=== PATIENT | female | born 1990 | race Caucasian/White ===

== ENCOUNTER 2022-01-22 12:16 | Emergency (ER) | payer OTHER, SELFPAY ==
[2022-01-22 14:02] VITALS: BP 149/74; PULSE 53; RESP 16; TEMP 36.6; O2SAT 100; BMI 61.2
[2022-01-22 15:10] LABS: IDNOW Serial# 08D9AD1C; Strep A Nucleic Acid Negative (Negative)
[2022-01-22 15:15] LABS: COVID-19 Test Negative (Negative)
[2022-01-22 15:16] LABS: Influenza A Negative (Negative); Influenza B2 Negative (Negative)
--- NOTE | 2022-01-22 15:16 | ED_ITS ---
HPI - General Adult General Chief complaint: General Medical Stated complaint: throat pain/tooth infection Time Seen by Provider: 01/22/22 14:57 Source: patient Mode of arrival: ambulatory Limitations: no limitations History of Present Illness HPI narrative: Patient is a 31-year-old female with a past medical history of hypertension, glaucoma, depression. She presents emergency department today for evaluation of a sore throat. She states that she has been having a right upper dental pain for a few weeks, but due to her depression did not have this evaluated. She presented to her dental abscess today had x-rays obtained and was given a new prescription for antibiotic, though she has not yet picked up the medication does not recall the name. She has this scheduled appointment next month for removal of the right upper is doing tooth. Since last night she has been having a sore throat, and reports that her throat feels ?swollen?. Denies fevers, chills, ear pain, difficulty swallowing, difficulty with speech, heartburn, nausea, vomiting, abdominal pain, chest pain, palpitations, shortness of breath, difficulty breathing. She does report a history of allergic rhinitis, has taken Flonase in the past, took an oral allergy pill today but did not notice any improvement. Review of Systems Review of Systems: Constitutional : No Fever, No Chills, No changes in PO intake, No difficulty speaking,? no recent dental procedure, no heat or cold intolerance while eating, no recent face trauma, ENT/Mouth : No swallowing difficulty, no change in voice, No jaw pain, No facial swelling, no drooling, no trismus, no bleeding, no lacerations, no tongue swelling, no gum swelling, Eyes: No Eye Pain, No periorbital Swelling Cardiovascular : No Chest Pain, No SOB Respiratory : No Cough, No Sputum, No Wheezing, No Smoke Exposure, No Dyspnea Gastrointestinal : No Nausea, No Vomiting, No Diarrhea Genitourinary : No Dysuria Musculoskeletal : No Myalgias Skin : No rash, no facial swelling or redness, Neuro : No Weakness, No Numbness, No Headache Yes all other systems are reviewed and are negative [facility] Past Medical History Attestation statement: The following information was validated with the patient. Source: old records reviewed Medical History Glaucoma HTN (hypertension) PTSD (post-traumatic stress disorder) Social History Social History Advance Directives: No Advance Directives Information Provided: No Patient : No Physical Exam ED Vital Signs: Vital Signs - 24 hr 01/22/22 14:02 Temperature 97.8 F Pulse Rate 53 Respiratory Rate 16 Blood Pressure 149/74 H Pulse Oximetry 100 BMI result Body Mass Index 61.2 Vital signs have been reviewed and appeared to be correct. Blood pressure mildly elevated at 149/74 Heart rate normal.? Respiration rate normal. Temperature normal.? Oxygen saturation normal. Appearance: Alert. Oriented X3. No acute distress. Head: Normal external exam. Normocephalic. Atraumatic. Eyes: PERRL. EOMI. Conjunctiva and sclera normal. Eyelids normal. ENT: EAC normal. TM's Normal. Pharynx normal. Uvula midline. Moist mucous membranes. Floor of mouth soft. No trismus noted.? No drooling noted.? No muffled voice noted. Dentition:? Patient with good dentition throughout.? Gingival within normal limits.? No fluctuance.? Not consistent with peritonsillar abscess. Not consistent with dental abscess.? No salivary duct obstruction noted. Neck: Normal inspection. Neck supple. FROM. No adenopathy. Thyroid Normal. No meningeal signs. No neck mass noted.? Trachea midline. CVS: Normal heart rate and rhythm. Heart sound normal. No murmurs noted. Pulses normal throughout. Respiratory: No respiratory distress. Painless inspiration. Breath sounds normal. No wheezes/rales/rhonchi noted. Chest nontender. ?No accessory muscle usage noted or decreased air movement noted. Back:? Full range of motion noted. Skin: Skin warm and dry.? Normal skin color.? Normal skin turgor. No rashes/lesions/lacerations noted. Extremities: Extremities exhibit normal range of motion.? Extremities nontender. Neuro: Oriented X 3.? No motor deficit.? No sensory deficit.? Reflexes normal. Course Course Course Narrative: Patient is a 31-year-old female being evaluated for sore throat. She is well appearing, nontoxic, afebrile, no tachycardia. Managing secretions appropirately. Had COVID-19 influenza and strep grp A testing in triage which were negative. On exam she has mild pharyngeal erythema, suspect that this may be viral or secondary to allergic rhinitis. Not consistent with peritonsillar abscess, dental abscess, Td's angina. She has already been prescribed course of antibiotics by her dental provider. Advised that she may trial [id number] Chloraseptic throat spray in addition to Flonase given her history of rhinitis. Discussed plan of care for discharge home, discussed reasons to return back to emergency department, patient is agreeable to plan of care. Medical Decision Making Lab Data Labs: Lab Results 01/22/22 01/22/22 Range/Units 14:51 14:51 COVID-19 ([facility]) Negative (Negative) COVID-19 Clin Com See Note S. pyogenes GrpA MARCELA Negative (Negative) Discharge Plan Discharge Clinical Impression: Pharyngitis Patient Disposition: Home, Self-Care Instructions: Pharyngitis (ED) Additional Instructions: COVID-19, influenza, strep throat testing were all negative. Please complete the course of antibiotics as prescribed by your dental provider, and follow-up as scheduled for extraction of your 2. Your sore throat is likely due to viral infection or possibly due to postnasal drip from allergies. He can purchase [id number] Chloraseptic throat spray for your discomfort and may want to trial Flonase. You can take ibuprofen 200 mg, 3 tablets (600mg) every 6-8 hours as needed for pain, in addition to Tylenol 500 mg, 2 tablets (1,000mg) every 4-6 hours as needed for pain, but not to exceed 3 doses daily (3,000mg).? Please return to emergency department with any new or worsening symptoms or concerns.
== END 2022-01-22 15:40 | disposition home or self-care (01) ==
PROVIDERS: Emergency Provider Emergency Medicine
DX: J02.9 Acute pharyngitis, unspecified (principal); I10 Essential (primary) hypertension; Z20.822 Contact with and (suspected) exposure to COVID-19; Z79.899 Other long term (current) drug therapy
CPT/HCPCS: 87502; 87635; 87651; 99283

== ENCOUNTER 2023-01-06 10:01 | Emergency (ER) | payer OTHER, SELFPAY ==
[2023-01-06 10:04] VITALS: BP 143/74; PULSE 77; RESP 18; TEMP 36.6; O2SAT 100; BMI 55.0
--- NOTE | 2023-01-06 10:27 | ED.GENADULT ---
HPI - General Adult General Chief complaint: Psychiatric Symptoms Stated complaint: crisis Time Seen by Provider: 01/06/23 10:27 Source: patient Mode of arrival: ambulatory Limitations: no limitations History of Present Illness HPI narrative: Patient is a 32 year old assigned female at with a history of glaucoma, depression, and insomnia associated with depression, presenting to the emergency department today with increased depression. Patient states that she used to be on Trazadone and Lexapro but because of the side effects and concerns around her glaucoma, she stopped them. Patient states that she has not been able to see a psychiatrist for at least 6 months. Patient states that she does not have any thoughts of harming herself or others. Patient denies any dizziness, lightheadedness, abdominal pain, nausea, vomiting, fever, chills, blurry vision, double vision, loss of vision, chest pain, difficulty breathing, shortness of breath, back pain, night sweats, pain with urination, increased urinary frequency, increased urinary urgency, blood in her urine or stool, syncope or a near syncopal episode, recent trauma or falls, bowel incontinence, bladder incontinence, bowel retention, bladder retention, or any other complaints at this time. Relieving factors: none Exacerbating factors: none Associated symptoms: denies other symptoms Treatments prior to arrival: none Related Data Allergies Allergy/AdvReac Type Severity Reaction Status Date / Time Unable to Assess Allergy Unverified 01/06/23 10:27 Review of Systems Constitutional: Constitutional: Reports no additional constitutional complaints, Denies chills, Denies fever(s) and Denies night sweats Eyes: Eyes: Reports no additional eye complaints, Denies blurry vision, Denies change in vision, Denies diplopia, Denies eye discharge, Denies loss of vision and Denies eye pain ENT: Denies dizziness Cardiovascular: Cardiovascular: Reports no additional cardiovascular complaints, Denies chest pain, Denies lightheadedness, Denies Loss of Consciousness and Denies dyspnea Respiratory: Respiratory: Reports no additional respiratory complaints and Denies dyspnea Gastrointestinal: Gastrointestinal: Reports no additional gastrointestinal complaints, Denies abdominal pain, Denies melena, Denies hematochezia, Denies change in bowel habits and Denies change in stool character Genitourinary: Genitourinary: Denies hematuria, Denies urinary frequency, Denies dysuria, Denies urinary incontinence, Denies urinary hesitancy and Denies urinary urgency Musculoskeletal: Musculoskeletal: Reports no additional musculoskeletal complaints, Denies numbness and Denies tingling Neurologic: Denies dizziness, Denies loss of vision, Denies numbness and Denies tingling Psychiatric: Psychiatric: Reports depression, Denies homicidal ideation and Denies suicidal ideation Endocrine: Endocrine: Reports no additional endocrine complaints Hematologic/Lymphatic: Hematologic/Lymphatic: Reports no additional hematologic/lymphatic complaints Allergic/Immunologic: Allergic/Immunologic: Reports no additional allergic/immunologic complaints [facility] Past Medical History Attestation statement: The following information was validated with the patient. Source: old records reviewed and nursing notes reviewed Medical History Glaucoma HTN (hypertension) PTSD (post-traumatic stress disorder) Social History Social History Alcohol intake: never Smoked in Last 30 Days: Yes Use of substances other than those prescribed or required for medical reasons: No Advance Directives: No Advance Directives Information Provided: No Patient : No Physical Exam ED Vital Signs: Vital Signs - 24 hr 01/06/23 10:04 01/06/23 11:10 Temperature 98 F 98.1 F Pulse Rate 77 58 Respiratory Rate 18 15 Blood Pressure 143/74 H 122/58 L Pulse Oximetry 100 100 Oxygen Delivery Method Room Air Room Air BMI result Body Mass Index 55.0 Const General: cooperative, no acute distress, alert and awake Nutritional Appearance: well nourished Orientation/consciousness: patient oriented x3 Limitations: no limitations [facility] Head: Yes normal to inspection and Yes atraumatic Ears: hearing grossly normal bilaterally and external ears normal General nose exam: Normal external nose present, no nasal discharge noted and no epistaxis Face and sinus: Yes normal facial exam, No abrasion and No laceration Mouth: Normal oral and palatal mucosa present, no drooling and no muffled voice Eyes General: appearance normal, both eyes and all related structures Periorbital: periorbital findings normal Eyelids: Yes eyelids normal Conjunctivae: conjunctivae normal Pupils: Equal, round and reactive pupils present EOM: EOMs intact bilaterally Neck Neck: Yes normal visual inspection, Yes full ROM and Yes no lymphadenopathy Chest Chest palpation & inspection: normal inspection of the chest Resp Effort & Inspection: normal respiratory effort and able to speak in complete sentences GI Inspection: Yes normal to inspection Neuro General: patient oriented x3 and moves all extremities Cranial nerves: Yes Equal, round and reactive pupils present Cognition (Neuro): normal cognition Motor exam (neuro): 5/5 motor strength present throughout Sensory Exam: Normal double simultaneous stimulation for sensation Coordination: [id number] test normal Extrem General: Yes normal to inspection, Yes full ROM and Yes capillary refill normal Psych Appearance: grossly normal Mental Status: mental status grossly normal Affect: Sad affect present Attitude: cooperative Thought process: Normal thought process present Thought content: suicidality, no homicidality and Depressive thoughts present Insight: Fair insight present (Psych) Judgement: Fair judgement present (Psych) Medical Decision Making Medical Decision Making MDM Narrative: Patient is a 32 year old assigned female at with a history of depression, glaucoma, and insomnia secondary to depression, presenting to the emergency department today with increased depression. Patient's physical exam showed a sad individual but was otherwise unremarkable. Patient's blood work was unremarkable. I explained my physical exam findings as well as all test results to the patient. I answered all questions asked by the patient. Patient again confirmed no thoughts of harming herself or others. I explained to the patient that given her medical complexity of glaucoma and psychiatric drug interactions in the past, I am uncomfortable starting her on psychiatric medications from the emergency room. However, I provided the patient a list of local psychiatric facilities who provide walk in hours for psychiatric care and recommended she follow up with one of those locations. I stressed the importance of the patient taking her medication as prescribed. I stressed the importance of the patient following up with her primary care provider and one of the psychiatric facilities listed. I stressed the importance of the patient returning to the emergency department immediately if her symptoms were to worsen or if she were to develop any dizziness, shortness of breath, difficulty breathing, chest pain, blurry vision, loss of vision, nausea, vomiting, abdominal pain, fever, chills, back pain, or any other complaints. Patient verbalized agreement and understanding with this treatment plan and discharge. Differential Diagnosis Differential Diagnoses: The differential diagnosis associated with the presentation includes depression Lab Data [facility] Lab Attestation statement: I reviewed the patient's lab results. 01/06/23 11:36 01/06/23 11:36 Labs: Lab Results 03/13/23 03/13/23 03/13/23 Range/Units 11:36 11:36 11:36 WBC 6.4 (4.8-10.8) X10*3/uL RBC 4.93 (4.20-5.50) X10*6/uL Hgb 13.5 (12.0-16.0) g/dl Hct 41.8 (37.0-47.0) % MCV 84.8 (80.0-98.0) fL MCH 27.4 (27.0-33.0) pg MCHC 32.3 (31.0-35.0) g/dl RDW 13.4 (11.0-16.0) % Plt Count 229 (160-400) X10*3/uL MPV 10.0 (9.4-12.3) fL Immature Gran % (Auto) 0.3 (0.0-0.4) % Neut % (Auto) 63.4 (45-73) % Lymph % (Auto) 27.2 (20-40) % Day % (Auto) 6.3 (2-11) % Eos % (Auto) 2.5 (0-4) % Baso % (Auto) 0.3 (0-2) % Lymph # (Auto) 1.7 (1.2-4.9) X10*3/uL Day # (Auto) 0.4 (0.1-1.2) X10*3/uL Eos # (Auto) 0.2 (0.0-0.4) X10*3/uL Baso # (Auto) 0.0 (0.0-0.2) X10*3/uL Abs Immat Gran (auto) 0.02 (0.00-0.03) X10*3/uL Absolute Neuts (auto) 4.1 (2.0-8.3) x10*3/uL Absolute Nucleated RBC 0.000 (0.0-0.012) X10*3/uL Nucleated RBC % (auto) 0.0 (0.0-0.2) /100WBC Sodium 142 (135-145) mmol/L Potassium 4.9 (3.3-5.1) mmol/L Chloride 107 (96-108) mmol/L Carbon Dioxide 27 (22-29) mmol/L Anion Gap 13 (12-20) BUN 12 (9-16) mg/dL Creatinine 0.79 (0.5-1.4) mg/dL Estim Creat Clear Calc 149.8 Estimated GFR > 60 Random Glucose 86 (60-115) mg/dL Calcium 9.4 (8.4-10.2) mg/dL Magnesium 2.2 (1.6-2.6) mg/dL Total Bilirubin 0.3 (0.0-1.0) mg/dL AST 17 (5-31) U/L ALT 14 (0-31) U/L Alkaline Phosphatase 76 (39-117) U/L Total Protein 7.3 (6.5-8.0) g/dL Albumin 4.3 (3.5-5.0) g/dL Acetaminophen < 17 (<30) mcg/mL Ethyl Alcohol < 10 mg/dL COVID-19 ([facility]) Negative (Negative) COVID-19 Clin Com See Note Discharge Plan Discharge Clinical Impression: Depression Patient Disposition: Home, Self-Care Instructions: Depression (ED) Additional Instructions: Follow up with your primary care provider and at one of the psychiatric resources listed below. Return to the emergency department immediately if your symptoms worsen or if you develop any dizziness, shortness of breath, difficulty breathing, chest pain, blurry vision, loss of vision, nausea, vomiting, abdominal pain, fever, chills, back pain, or any other complaints. [facility]: [address] [place] [id number] Open from 10am - 12pm [facility] Crisis Services: [address] [place] [address] Open 19/05 Behavioral [facility] Network: [address] [place] [id number] [address] [place] [id number] Hours: M-F 8am to 8pm Friday and Friday 9am to 5pm Referrals: Jacqui Ho MD [Primary Care Provider] - Stand Alone Forms: Work/School Release Interventions: Zulema-Suicide Risk Severity Scale Last Done: 01/06/23 10:46 Print Language: Fijian
[2023-01-06 11:10] VITALS: BP 122/58; PULSE 58; RESP 15; TEMP 36.7; O2SAT 100
[2023-01-06 11:42] LABS: MANUAL DIFF FLAG NO
[2023-01-06 11:46] LABS: Basophils Percent Auto 0.3 % (0-2); Eosinophils Absolute Auto 0.2 X10*3/uL (0.0-0.4); Eosinophils Percent Auto 2.5 % (0-4); Hematocrit 41.8 % (37.0-47.0); Hemoglobin 13.5 g/dl (12.0-16.0); Imm Gran Abs Auto 0.02 X10*3/uL (0.00-0.03); Imm Gran Pct Auto 0.3 % (0.0-0.4); Lymphocytes Absolute Auto 1.7 X10*3/uL (1.2-4.9); Lymphocytes Percent Auto 27.2 % (20-40); Mean Corpuscular HGB Conc 32.3 g/dl (31.0-35.0); Mean Corpuscular Hemoglobin 27.4 pg (27.0-33.0); Mean Corpuscular Volume 84.8 fL (80.0-98.0); Monocytes Absolute Auto 0.4 X10*3/uL (0.1-1.2); Monocytes Percent Auto 6.3 % (2-11); Neutrophils Absolute Auto 4.1 x10*3/uL (2.0-8.3); Neutrophils Percent Auto 63.4 % (45-73); Platelet Count 229 X10*3/uL (160-400); Red Blood Count 4.93 X10*6/uL (4.20-5.50); Red Cell Distribution Width 13.4 % (11.0-16.0); White Blood Count 6.4 X10*3/uL (4.8-10.8)
[2023-01-06 11:56] LABS: COVID-19 Test Negative (Negative); IDNOW Serial# BCCEAD1C
[2023-01-06 12:12] LABS: Acetaminophen LAB < 17 mcg/mL (<30); Alanine Aminotransferase 14 U/L (0-31); Albumin Level 4.3 g/dL (3.5-5.0); Alkaline Phosphatase 76 U/L (39-117); Anion Gap 13 (12-20); Aspartate Amino Transferase 17 U/L (5-31); Bilirubin Total 0.3 mg/dL (0.0-1.0); Blood Urea Nitrogen 12 mg/dL (9-16); Calcium 9.4 mg/dL (8.4-10.2); Carbon Dioxide 27 mmol/L (22-29); Chloride 107 mmol/L (96-108); Creatinine Clr Calc Pharmacy 149.8; Estimated Glomerular Filt Rate > 60; Ethanol < 10 mg/dL; Glucose Random 86 mg/dL (60-115); Magnesium 2.2 mg/dL (1.6-2.6); Potassium 4.9 mmol/L (3.3-5.1); Sodium 142 mmol/L (135-145); Total Protein 7.3 g/dL (6.5-8.0)
[2023-01-06 12:22] LABS: HCG Quantitative < 2 mIU/mL
[2023-01-06 12:46] LABS: Salicylate < 5.0 mg/dL (15-30)
== END 2023-01-06 12:32 | disposition home or self-care (01) ==
PROVIDERS: Physician Assistant Medical; Emergency Provider Student in an Organized Health Care Education/Training Program; PCP Internal Medicine
DX: F33.1 Major depressive disorder, recurrent, moderate (principal); G47.00 Insomnia, unspecified; Z20.822 Contact with and (suspected) exposure to COVID-19; Z20.828 Contact with and (suspected) exposure to other viral communicable diseases; Z79.899 Other long term (current) drug therapy
CPT/HCPCS: 80053; 80143; 80179; 82077; 83735; 84702; 85025; 87635; 99284; 99285

== ENCOUNTER 2023-02-05 16:47 | Emergency (ER) | payer OTHER, SELFPAY ==
--- NOTE | 2023-02-05 17:01 | ED_ITS ---
HPI - General Adult General Chief complaint: General Medical Stated complaint: muscular pain, fatigue, muscle weakness, med react Time Seen by Provider: 02/05/23 18:50 Source: patient Mode of arrival: ambulatory Limitations: no limitations History of Present Illness HPI narrative: 32-year-old female with a history of glaucoma, depression who was removed started on Wellbutrin about 3 weeks ago presents to the ER with complaints of approximately 2-3 weeks of fatigue, body aches, malaise. Patient believes that this is a side effect of her taking the antidepressant. This is a new medication for her. It was initiated during her partial hospitalization for depression. She has a follow-up appointment with her primary care doctor on February 25. She tells me that her depression overall is much improved and she feels better since taking the medication. She denies any SI or HI hallucinations. She is hesitant to stop the medication as she is feeling overall better mentally. She denies any fevers, vomiting, diarrhea, chest pain, abdominal pain, skin rash, weight loss, night sweats. Related Data Allergies Allergy/AdvReac Type Severity Reaction Status Date / Time amoxicillin Allergy Hives Verified 02/05/23 17:01 Penicillins Allergy Hives Verified 02/05/23 17:01 timolol Allergy Hives Verified 02/05/23 17:01 Review of Systems Review of Systems: Yes all other systems are reviewed and are negative Constitutional: Constitutional: Reports no additional constitutional complaints, Reports body ache(s), Denies chills, Reports fatigue, Denies fever(s), Denies headache(s), Reports malaise and Denies weakness Eyes: Eyes: Reports no additional eye complaints and Denies change in vision ENT: Reports system reviewed and no additional complaints, except as documented, Denies dizziness, Denies headache(s), Denies nasal congestion, Denies nasal discharge and Denies neck pain Cardiovascular: Cardiovascular: Reports no additional cardiovascular complaints, Denies chest pain, Denies leg edema and Denies dyspnea Respiratory: Respiratory: Reports no additional respiratory complaints, Denies cough and Denies dyspnea Gastrointestinal: Gastrointestinal: Reports no additional gastrointestinal complaints, Denies abdominal pain, Denies diarrhea, Denies nausea and Denies vomiting Genitourinary: Genitourinary: Reports no additional female genitourinary complaints and Denies urinary incontinence Musculoskeletal: Musculoskeletal: Reports no additional musculoskeletal complaints, Denies back pain, Denies arthralgias, Denies joint swelling, Denies neck pain, Denies numbness and Denies tingling Integumentary/Breasts: Skin/Breast: Reports system reviewed and no additional complaints, except as docu and Denies rash Neurologic: Reports system reviewed and no additional complaints, except as documented, Denies dizziness, Denies headache(s), Denies numbness, Denies tingling and Denies weakness Endocrine: Endocrine: Reports fatigue [facility] Past Medical History Attestation statement: The following information was validated with the patient. Source: old records reviewed and nursing notes reviewed Medical History Glaucoma HTN (hypertension) PTSD (post-traumatic stress disorder) Social History Social History Alcohol intake: never Advance Directives: No Advance Directives Information Provided: No Physical Exam ED Vital Signs: Vital Signs - 24 hr 02/05/23 17:02 Temperature 97.5 F Pulse Rate 87 Respiratory Rate 18 Blood Pressure 142/87 H Pulse Oximetry 97 Oxygen Delivery Method Room Air BMI result Body Mass Index 55.3 Const General: cooperative, healthy appearing, comfortable and no acute distress Orientation/consciousness: patient oriented x3 Limitations: no limitations HENMT Head: Yes normal to inspection Ears: hearing grossly normal bilaterally and TM's normal bilaterally General nose exam: Normal external nose present Face and sinus: Yes normal facial exam Throat: Yes posterior oropharynx normal, Yes tonsils normal and Yes uvula midline Eyes General: appearance normal, both eyes and all related structures Pupils: Equal, round and reactive pupils present Neck Neck: Yes normal visual inspection and Yes full ROM Chest Chest palpation & inspection: normal inspection of the chest Resp Effort & Inspection: normal respiratory effort Auscultation: clear to auscultation bilaterally Cardio Rate: regular rate Rhythm: regular rhythm Peripheral pulses: Peripheral pulses 2+ throughout GI Inspection: Yes normal to inspection Palpation (GI): Soft to palpation and nontender General: Yes no CVA tenderness Back/Spine/Pelvis Back: no CVA tenderness Thoracic/Lumbar Spine: thoracic and lumbar spine normal to inspection Skin General skin exam: no rashes or lesions noted Neuro General: patient oriented x3 and moves all extremities Cranial nerves: Yes Equal, round and reactive pupils present Cognition (Neuro): normal cognition Gait exam (Neuro): Normal gait present Course Course Course Narrative: This is a rapid medical exam. Deferred additional HPI, ROS, PE to primary provider. 32 yo female with history of depression here with a few weeks of body aches, fatigue, joint pain which she contributes to starting wellbutrin. Will obtain labs. VSS Reevaluation(s) Reevaluation #1: This CPK is 160 which is just mildly elevated. Patient can orally rehydrate. Her all other labs are normal including her viral testing. The patient and I discussed at length that her symptoms may be secondary to her depression or secondary to her new medications however if she is feeling well mental health [place] then maybe she should continue the medications and reassess how she feels in a few weeks. The patient is happy with this plan of care and will continue her home medications and follow-up with her primary care doctor on February 25 test scheduled. Reviewed worrisome signs and symptoms of when to return to the emergency room. Comfortable plan for discharge home. Medical Decision Making Medical Decision Making [facility] Narrative: 32-year-old female here with complaints of several weeks of fatigue, body aches, malaise which she contributes to starting Wellbutrin 3 weeks ago. This was started due to depression while patient was here on a partial hospitalization. Patient reports overall mental health [place] she is feeling much improved and denies any depression, suicidal homicidal ideations. Overall her exam is nontox ic. Her vitals are stable. Will send obtain labs, viral testing Differential Diagnosis Differential Diagnoses: The differential diagnosis associated with the presentation includes Viral syndrome, medication side effect, depression, rhabdomyolysis Lab Data [facility] Lab Attestation statement: I reviewed the patient's lab results. 02/05/23 17:34 02/05/23 17:34 Labs: Lab Results 02/05/23 02/05/23 02/05/23 Range/Units 17:33 17:34 17:34 WBC 8.7 (4.8-10.8) X10*3/uL RBC 4.97 (4.20-5.50) X10*6/uL Hgb 13.4 (12.0-16.0) g/dl Hct 41.2 (37.0-47.0) % MCV 82.9 (80.0-98.0) fL MCH 27.0 (27.0-33.0) pg MCHC 32.5 (31.0-35.0) g/dl RDW 13.7 (11.0-16.0) % Plt Count 274 (160-400) X10*3/uL MPV 9.7 (9.4-12.3) fL Immature Gran % (Auto) 0.3 (0.0-0.4) % Neut % (Auto) 61.1 (45-73) % Lymph % (Auto) 27.4 (20-40) % [place] % (Auto) 8.6 (2-11) % Eos % (Auto) 2.1 (0-4) % Baso % (Auto) 0.5 (0-2) % Lymph # (Auto) 2.4 (1.2-4.9) X10*3/uL [place] # (Auto) 0.8 (0.1-1.2) X10*3/uL Eos # (Auto) 0.2 (0.0-0.4) X10*3/uL Baso # (Auto) 0.0 (0.0-0.2) X10*3/uL Abs Immat Gran (auto) 0.03 (0.00-0.03) X10*3/uL Absolute Neuts (auto) 5.3 (2.0-8.3) x10*3/uL Absolute Nucleated RBC 0.000 (0.0-0.012) X10*3/uL Nucleated RBC % (auto) 0.0 (0.0-0.2) /100WBC Sodium 139 (135-145) mmol/L Potassium 4.2 (3.3-5.1) mmol/L Chloride 102 (96-108) mmol/L Carbon Dioxide 28 (22-29) mmol/L Anion Gap 13 (12-20) BUN 15 (9-16) mg/dL Creatinine 0.84 (0.5-1.4) mg/dL Estim Creat Clear Calc 139.7 Estimated GFR > 60 Random Glucose 102 (60-115) mg/dL Calcium 9.1 (8.4-10.2) mg/dL Total Bilirubin 0.5 (0.0-1.0) mg/dL Direct Bilirubin 0.2 (0.0-0.5) mg/dL AST 18 (5-31) U/L ALT 15 (0-31) U/L Alkaline Phosphatase 81 (39-117) U/L Total Creatine Kinase 160 H (26-140) U/L Total Protein 7.3 (6.5-8.0) g/dL Albumin 4.3 (3.5-5.0) g/dL Influenza Type A (PCR) NEGATIVE (Negative) Influenza Type B (PCR) NEGATIVE (Negative) RSV RNA Qual (PCR) NEGATIVE (Negative) SARS-CoV-2 RNA (RT-PCR) NEGATIVE (Negative) Discharge Plan Discharge Clinical Impression: Body aches Patient Disposition: Home, Self-Care Instructions: Arthralgia (ED) Additional Instructions: Your blood work today we did check your blood counts to make sure that you are anemic, we checked her kidney function, liver function, electrolytes which were all normal. Your CPK which indicates if there is any muscle breakdown was just mildly elevated at 160. We treat this with hydration so make sure that you are drinking plenty of fluid Your testing for flu, COVID and RSV are negative Continue your medication Follow-up with your primary care doctor as scheduled Referrals: Physician,Candida J [Primary Care Provider] - 10 days Interventions: ED Discharge Assessment Last Done: 02/05/23 18:58
[2023-02-05 17:02] VITALS: BP 142/87; PULSE 87; RESP 18; TEMP 36.4; O2SAT 97; BMI 55.3
[2023-02-05 17:36] LABS: MANUAL DIFF FLAG NO
[2023-02-05 17:39] LABS: Basophils Percent Auto 0.5 % (0-2); Eosinophils Absolute Auto 0.2 X10*3/uL (0.0-0.4); Eosinophils Percent Auto 2.1 % (0-4); Hematocrit 41.2 % (37.0-47.0); Hemoglobin 13.4 g/dl (12.0-16.0); Imm Gran Abs Auto 0.03 X10*3/uL (0.00-0.03); Imm Gran Pct Auto 0.3 % (0.0-0.4); Lymphocytes Absolute Auto 2.4 X10*3/uL (1.2-4.9); Lymphocytes Percent Auto 27.4 % (20-40); Mean Corpuscular HGB Conc 32.5 g/dl (31.0-35.0); Mean Corpuscular Volume 82.9 fL (80.0-98.0); Mean Platelet Volume 9.7 fL (9.4-12.3); Monocytes Absolute Auto 0.8 X10*3/uL (0.1-1.2); Monocytes Percent Auto 8.6 % (2-11); Neutrophils Absolute Auto 5.3 x10*3/uL (2.0-8.3); Neutrophils Percent Auto 61.1 % (45-73); Platelet Count 274 X10*3/uL (160-400); Red Blood Count 4.97 X10*6/uL (4.20-5.50); Red Cell Distribution Width 13.7 % (11.0-16.0); White Blood Count 8.7 X10*3/uL (4.8-10.8)
[2023-02-05 17:52] LABS: Alanine Aminotransferase 15 U/L (0-31); Albumin Level 4.3 g/dL (3.5-5.0); Alkaline Phosphatase 81 U/L (39-117); Anion Gap 13 (12-20); Aspartate Amino Transferase 18 U/L (5-31); Bilirubin Direct 0.2 mg/dL (0.0-0.5); Bilirubin Total 0.5 mg/dL (0.0-1.0); Blood Urea Nitrogen 15 mg/dL (9-16); Calcium 9.1 mg/dL (8.4-10.2); Carbon Dioxide 28 mmol/L (22-29); Chloride 102 mmol/L (96-108); Creatinine Clr Calc Pharmacy 139.7; Estimated Glomerular Filt Rate > 60; Glucose Random 102 mg/dL (60-115); Potassium 4.2 mmol/L (3.3-5.1); Sodium 139 mmol/L (135-145); Total Protein 7.3 g/dL (6.5-8.0)
[2023-02-05 18:15] LABS: Influenza A PCR NEGATIVE (Negative); Influenza B PCR NEGATIVE (Negative); Resp Syncy Virus RNA Qual PCR NEGATIVE (Negative); SARS COV2 PCR INHOUSE NEGATIVE (Negative)
== END 2023-02-05 18:58 | disposition home or self-care (01) ==
PROVIDERS: Nurse Practitioner Family; Emergency Provider Emergency Medicine
DX: M62.81 Muscle weakness (generalized) (principal); M25.50 Pain in unspecified joint; Z20.822 Contact with and (suspected) exposure to COVID-19
CPT/HCPCS: 0241U; 80048; 80076; 82550; 85025; 99282; 99283

== ENCOUNTER 2025-06-02 08:51 | Emergency (ER) | payer OTHER, SELFPAY ==
[2025-06-02 09:00] VITALS: BP 151/82; PULSE 87; RESP 16; TEMP 36.6; O2SAT 97; BMI 60.4
[2025-06-02 09:33] LABS: MANUAL DIFF FLAG NO
[2025-06-02 09:36] LABS: Hematocrit 43.6 % (37.0-47.0); Hemoglobin 14.1 g/dl (12.0-16.0); Imm Gran Abs Auto 0.02 X10*3/uL (0.00-0.03); Imm Gran Pct Auto 0.3 % (0.0-0.4); Lymphocytes Absolute Auto 1.4 X10*3/uL (1.2-4.9); Mean Corpuscular HGB Conc 32.3 g/dl (31.0-35.0); Mean Corpuscular Hemoglobin 25.5 pg (27.0-33.0); Mean Corpuscular Volume 78.7 fL (80.0-98.0); NRBC Abs Auto 0.000 X10*3/uL (0.0-0.012); NRBC Pct Auto 0.0 /100WBC (0.0-0.2); Platelet Count 283 X10*3/uL (160-400); Red Blood Count 5.54 X10*6/uL (4.20-5.50); White Blood Count 7.4 X10*3/uL (4.8-10.8)
[2025-06-02 10:16] LABS: Anion Gap 17 (12-20); Blood Urea Nitrogen 15 mg/dL (9-16); Calcium 9.2 mg/dL (8.4-10.2); Carbon Dioxide 27 mmol/L (22-29); Chloride 99 mmol/L (96-108); Creatinine Clr Calc Pharmacy 119.7; Estimated Glomerular Filt Rate > 60; Potassium 2.9 mmol/L (3.3-5.1); Sodium 140 mmol/L (135-145)
--- NOTE | 2025-06-02 10:36 | ECG_ITS ---
Test Reason : HYPOKALEMIA Blood Pressure : */* mmHG Vent. Rate : 60 BPM Atrial Rate : 60 BPM P-R Int : 80 ms QRS Dur : 96 ms QT Int : 434 ms P-R-T Axes : 2 47 39 degrees QTcB Int : 434 ms Sinus rhythm with short [place] Otherwise normal ECG No previous ECGs available Referred By: Joan Ly Electronically Signed By: CHEY MURRAY
[2025-06-02 11:08] LABS: Alanine Aminotransferase 36 U/L (0-31); Albumin Level 5.0 g/dL (3.5-5.0); Alkaline Phosphatase 70 U/L (39-117); Aspartate Amino Transferase 56 U/L (5-31); Lipase 22 U/L (8-78); Magnesium 2.2 mg/dL (1.6-2.6); Total Protein 8.1 g/dL (6.5-8.0)
--- NOTE | 2025-06-02 11:18 | ED_ITS ---
HPI - General Adult General Chief complaint: Nausea/Vomiting/Diarrhea Stated complaint: vomiting Time Seen by Provider: 06/02/25 11:18 Source: patient Mode of arrival: ambulatory Limitations: no limitations History of Present Illness ED Provider: Magali Seay PA-C HPI narrative: Patient is a 34 year old assigned female at , now male, with a history of recently being started on Wegovy, HTN, anxiety presenting to the emergency department today with nausea and vomiting. Patient states that over the last 3 weeks he has had nausea and the last 24 hours he has had vomiting. Patient states that he spoke to his PCP who recommended coming to the ER and stopping Wegovy. Patient denies any dizziness, lightheadedness, abdominal pain, fever, chills, blurry vision, double vision, loss of vision, chest pain, difficulty breathing, shortness of breath, back pain, night sweats, pain with urination, increased urinary frequency, increased urinary urgency, blood in her urine or stool, syncope or a near syncopal episode, recent trauma or falls, bowel incontinence, bladder incontinence, or any other complaints at this time. Relieving factors: none Exacerbating factors: none Associated symptoms: nausea/vomiting Treatments prior to arrival: none Related Data Allergies Allergy/AdvReac Type Severity Reaction Status Date / Time amoxicillin Allergy Hives Verified 06/02/25 09:02 Penicillins Allergy Hives Verified 06/02/25 09:02 timolol Allergy Hives Verified 06/02/25 09:02 Review of Systems 2 Constitutional: Constitutional: Reports no additional constitutional complaints, Denies chills, Denies fever(s) and Denies night sweats Eyes: Eyes: Reports no additional eye complaints, Denies blurry vision, Denies change in vision, Denies diplopia, Denies eye discharge, Denies loss of vision and Denies eye pain ENT: Denies dizziness Cardiovascular: Cardiovascular: Reports no additional cardiovascular complaints, Denies chest pain, Denies lightheadedness, Denies Loss of Consciousness and Denies dyspnea Respiratory: Respiratory: Reports no additional respiratory complaints and Denies dyspnea Gastrointestinal: Gastrointestinal: Reports no additional gastrointestinal complaints, Denies abdominal pain, Denies melena, Denies hematochezia, Denies change in bowel habits, Denies change in stool character, Reports nausea and Reports vomiting Genitourinary: Genitourinary: Denies hematuria, Denies urinary frequency, Denies dysuria, Denies urinary incontinence, Denies urinary hesitancy and Denies urinary urgency Musculoskeletal: Musculoskeletal: Reports no additional musculoskeletal complaints, Denies numbness and Denies tingling Neurologic: Denies dizziness, Denies loss of vision, Denies numbness and Denies tingling Psychiatric: Psychiatric: Reports no additional psychiatric complaints Endocrine: Endocrine: Reports no additional endocrine complaints Hematologic/Lymphatic: Hematologic/Lymphatic: Reports no additional hematologic/lymphatic complaints Allergic/Immunologic: Allergic/Immunologic: Reports no additional allergic/immunologic complaints [facility] Past Medical History Attestation statement: The following information was validated with the patient. Source: old records reviewed and nursing notes reviewed Medical History PTSD (post-traumatic stress disorder) Glaucoma HTN (hypertension) Social History Social History Alcohol intake: never Advance Directives: No Advance Directives Information Provided: Yes Physical Exam ED Vital Signs: Vital Signs - 24 hr 06/02/25 09:00 06/02/25 12:30 06/02/25 14:35 Temperature 97.8 F 98.5 F 98.4 F Pulse Rate 87 64 60 Respiratory Rate 16 16 16 Blood Pressure 151/82 H 124/63 117/59 L Pulse Oximetry 97 99 100 Oxygen Delivery Method Room Air Room Air Room Air 06/02/25 16:14 06/02/25 16:28 Temperature 97.7 F 97.7 F Pulse Rate 53 53 Respiratory Rate 15 15 Blood Pressure 129/70 129/70 Pulse Oximetry 99 99 Oxygen Delivery Method Room Air Room Air BMI result Body Mass Index 60.4 Const General: cooperative, no acute distress, alert and awake Nutritional Appearance: well nourished Orientation/consciousness: patient oriented x3 HENMT Head: Yes normal to inspection and Yes atraumatic Ears: hearing grossly normal bilaterally and external ears normal General nose exam: Normal external nose present, no nasal discharge noted and no epistaxis Face and sinus: Yes normal facial exam, No abrasion and No laceration Mouth: Normal oral and palatal mucosa present, no drooling and no muffled voice Eyes General: appearance normal, both eyes and all related structures Periorbital: periorbital findings normal Eyelids: Yes eyelids normal Conjunctivae: conjunctivae normal Pupils: Equal, round and reactive pupils present EOM: EOMs intact bilaterally Neck Neck: Yes normal visual inspection, Yes full ROM and Yes no lymphadenopathy Resp Effort & Inspection: normal respiratory effort and able to speak in complete sentences Neuro General: patient oriented x3, moves all extremities and CN's II-XI intact bilaterally Cranial nerves: Yes Equal, round and reactive pupils present Cognition (Neuro): normal cognition Extrem General: Yes normal to inspection, Yes full ROM and Yes capillary refill normal Psych Appearance: grossly normal Mental Status: mental status grossly normal Affect: normal affect Attitude: cooperative Thought process: Normal thought process present Thought content: Normal thought content present Insight: Good insight present (Psych) Medications Administered Discontinued Medications Generic Name Dose Route Start Last Admin Trade Name Freq PRN Reason Stop Dose Admin Potassium Chloride 10 meq in 100 mls @ 100 mls/hr 06/02/25 11:30 06/02/25 16:27 Potassium Chloride/H20 IV 06/02/25 15:29 Infused Q1H ANGI Infusion Sodium Chloride 1,000 mls @ 999 mls/hr 06/02/25 11:30 06/02/25 12:33 Ns IV 06/02/25 12:30 Infused .Q1H1M ANGI Infusion Metoclopramide HCl 10 mg 06/02/25 11:18 06/02/25 11:33 Metoclopramide Hcl 10 Mg/2 Ml Vial IVPUSH 06/02/25 11:19 10 mg ONCE ONE Administration Potassium Chloride 20 meq 06/02/25 11:41 06/02/25 12:48 Potassium Chloride Er 20 Meq Tab.Er.Prt PO 06/02/25 11:42 20 meq ONCE ONE Administration Medical Decision Making Medical Decision Making [facility] Narrative: Patient is a 34 year old assigned female at , now male, with a history of recently being started on Wegovy, HTN, anxiety presenting to the emergency department today with nausea and vomiting. Patient's physical exam was unremarkable. Patient's blood work showed an initial potassium of 2.9 but were otherwise unremarkable. I explained my physical exam findings as well as all test results to the patient. I answered all questions asked by the patient. Patient received IV reglan, potassium, fluids, and PO potassium which, upon re- evaluation, he stated it helped his symptoms significantly. Repeat potassium was performed and was 3.2. I stressed the importance of the patient taking his medication as directed (either prescribed or as the over the counter packaging recommends). I stressed the importance of the patient following up with his primary care provider. I stressed the importance of the patient returning to the emergency department immediately if his symptoms were to worsen or if he were to develop any dizziness, shortness of breath, difficulty breathing, chest pain, blurry vision, loss of vision, nausea, vomiting, abdominal pain, fever, chills, back pain, or any other complaints. Patient verbalized agreement and understanding with this treatment plan and discharge. Differential Diagnosis Differential Diagnoses: The differential diagnosis associated with the presentation includes Vomiting Nausea Medication reaction Adverse medication reaction Gastritis Hypokalemia Admission/Observation Consideration of admission/observation: Escalation of care including admission/observation considered Patient would have been admitted to the hospital had her work up had any findings where hospital admission was appropriate and her clinical presentation warranted hospital admission. Lab Data [facility] Lab Attestation statement: I reviewed the patient's lab results. My interpretation of these results are in the [facility] Rationale portion of this note. 06/02/25 09:15 06/02/25 15:05 Labs: Lab Results 06/02/25 06/02/25 Range/Units 09:15 15:05 WBC 7.4 (4.8-10.8) X10*3/uL RBC 5.54 H (4.20-5.50) X10*6/uL Hgb 14.1 (12.0-16.0) g/dl Hct 43.6 (37.0-47.0) % MCV 78.7 L (80.0-98.0) fL MCH 25.5 L (27.0-33.0) pg MCHC 32.3 (31.0-35.0) g/dl RDW 16.7 H (11.0-16.0) % Plt Count 283 (160-400) X10*3/uL MPV 10.8 (9.4-12.3) fL Immature Gran % (Auto) 0.3 (0.0-0.4) % Neut % (Auto) 68.2 (45-73) % Lymph % (Auto) 19.1 L (20-40) % [place] % (Auto) 11.1 H (2-11) % Eos % (Auto) 0.8 (0-4) % Baso % (Auto) 0.5 (0-2) % Lymph # (Auto) 1.4 (1.2-4.9) X10*3/uL [place] # (Auto) 0.8 (0.1-1.2) X10*3/uL Eos # (Auto) 0.1 (0.0-0.4) X10*3/uL Baso # (Auto) 0.0 (0.0-0.2) X10*3/uL Abs Immat Gran (auto) 0.02 (0.00-0.03) X10*3/uL Absolute Neuts (auto) 5.1 (2.0-8.3) x10*3/uL Absolute Nucleated RBC 0.000 (0.0-0.012) X10*3/uL Nucleated RBC % (auto) 0.0 (0.0-0.2) /100WBC Sodium 140 (135-145) mmol/L Potassium 2.9 L* 3.4 (3.3-5.1) mmol/L Chloride 99 (96-108) mmol/L Carbon Dioxide 27 (22-29) mmol/L Anion Gap 17 (12-20) BUN 15 (9-16) mg/dL Creatinine 1.02 (0.5-1.4) mg/dL Estim Creat Clear Calc 119.7 Estimated GFR > 60 Random Glucose 104 (60-115) mg/dL Calcium 9.2 (8.4-10.2) mg/dL Magnesium 2.2 (1.6-2.6) mg/dL Total Bilirubin 0.7 (0.0-1.0) mg/dL Direct Bilirubin 0.3 (0.0-0.5) mg/dL AST 56 H (5-31) U/L ALT 36 H (0-31) U/L Alkaline Phosphatase 70 (39-117) U/L Total Protein 8.1 H (6.5-8.0) g/dL Albumin 5.0 (3.5-5.0) g/dL Lipase 22 (8-78) U/L Beta HCG, Quant < 2 mIU/mL Independent Interpretation I performed an independent interpretation of an: EKG Interpretation: I independently interpreted this EKG and am in agreement with the below findings: Vent. Rate: 60 BPM Atrial Rate: 60 BPM P-R Int: 80 ms QRS Dur: 96 ms QT Int: 434 ms P-R-T Axes: 2 47 39 degrees QTcB Int: 434 ms Sinus rhythm with short [place] Otherwise normal ECG No previous ECGs available DD/ [id number] Critical Care Time Critical Care Time Critical Care Time: Yes Total Critical Care Time: 38 Attestation: I spent 38 minutes of Critical Care Time with this patient. This does not include time spent on separately reported billable procedures. Discharge Plan Discharge Clinical Impression: Nausea & vomiting, Hypokalemia Patient Disposition: Home, Self-Care Instructions: Potassium Content of Foods List (ED), Hypokalemia (ED), Acute Nausea and Vomiting (DC) Additional Instructions: Your work up today showed an initial potassium of 2.9 - we gave you oral and IV replacement of this and made it 3.2 which is normal. STOP taking your Wegovy. IF you are prescribed medications and/or you are taking over the counter medications - it is very important you continue to do so as prescribed / directed unless told otherwise. Follow up with your primary care provider. Return to the emergency department immediately if your symptoms worsen or if you develop any numbness, tingling, dizziness, shortness of breath, difficulty breathing, chest pain, blurry vision, loss of vision, nausea, vomiting, abdominal pain, fever, chills, back pain, or any other complaints. Please see the information below about our Patient Portal. If you are not yet enrolled in the [facility] Patient Portal, you will receive an enrollment email invitation following your visit to any [facility] setting. You may also self-enroll in the Patient Portal by visiting our website: [email or web address] The following information is required to access the Patient Portal: - Your [facility] Medical Record Number - Your personal home email address (must match what is in your electronic medical record, Registration staff can assist with this) - Name - Date of Capabilities of the Patient Portal: - Message some providers - View upcoming appointments - Access your health summary, medical history, and visit history - View current conditions and allergies - View procedure and lab results - View your medications, including guidelines, side effects, and precautions - Complete pre-appointment questionnaires requested by your provider - Ready summary reports of your office visits and procedures To access the Patient Portal Mobile [employer], follow these directions: - Search [employer] in the [employer] Store or [employer] Store - Download the [employer] - Search for [facility] - Enter your login/password Referrals: Renita Fuchs NP [Primary Care Provider, Internal Medicine] Stand Alone Forms: Work/School Release Interventions: ED Discharge Assessment Last Done: 06/02/25 16:28 Discharge Date/Time: 06/02/25 16:28 Print Language: Armenian
[2025-06-02] MEDS: Potassium Chloride/H20 10 MEQ/100 ML PIGGYBACK 100 MEQ IV ×4 (11:33→15:31)
[2025-06-02 12:30] VITALS: BP 124/63; PULSE 64; RESP 16; TEMP 36.9; O2SAT 99
[2025-06-02] MEDS: Potassium Chloride ER 20 MEQ TAB.ER.PRT PO (12:48)
[2025-06-02 14:35] VITALS: BP 117/59; PULSE 60; RESP 16; TEMP 36.9; O2SAT 100
[2025-06-02 15:23] LABS: Potassium 3.4 mmol/L (3.3-5.1)
[2025-06-02 16:14] VITALS: BP 129/70; PULSE 53; RESP 15; TEMP 36.5; O2SAT 99
[2025-06-02 16:28] VITALS: BP 129/70; PULSE 53; RESP 15; TEMP 36.5; O2SAT 99
== END 2025-06-02 16:28 | disposition home or self-care (01) ==
PROVIDERS: Emergency Medicine; Physician Assistant Medical; Emergency Provider Emergency Medicine; PCP Nurse Practitioner Family
DX: R11.2 Nausea with vomiting, unspecified (principal); E87.6 Hypokalemia; I10 Essential (primary) hypertension
CPT/HCPCS: 36415; 80048; 80076; 83690; 83735; 84132; 84702; 85025; 93005; 96361; 96365; 96366; 96375; 99284; 99291; J2765; J3480

== ENCOUNTER → 2025-06-02 10:36 | Outpatient (BNV) | payer OTHER, SELFPAY | PROVIDERS: Emergency Provider Emergency Medicine; PCP Nurse Practitioner Family; Visit Provider Internal Medicine | DX: E87.6 Hypokalemia (principal) | CPT/HCPCS: 93010 ==